=== PATIENT | male | born 1945 | race Caucasian/White ===

== ENCOUNTER 2022-12-13 06:17 | Day surgery (SDC) | payer OTHER ==
[2022-12-10 10:50] LABS: EOSINOPHILS % (AUTO) 2.3 % (0.0-8.0); HEMATOCRIT 47.4 % (42-54); LYMPHOCYTES % (AUTO) 11.7 % (21.0-51.0); MEAN CORPUSCULAR HEMOGLOBIN 31.1 pg (27.0-33.0); MEAN CORPUSCULAR HGB CONC 33.3 g/dL (32.0-36.0); MEAN CORPUSCULAR VOLUME 93.3 fL (79-99); MONOCYTES % (AUTO) 10.9 % (3.0-13.0); NEUTROPHILS % (AUTO) 73.6 % (40.0-77.0); PLATELET COUNT (AUTO) 449 K/uL (130-400); RED BLOOD CELL COUNT(AUTO) 5.08 MIL/uL (4.50-6.20); WHITE BLOOD COUNT (AUTO) 7.9 K/uL (4.8-10.8)
[2022-12-10 11:04] LABS: APPEARANCE,URINE CLEAR (CLEAR); BILIRUBIN,URINE NEGATIVE (NEGATIVE); COLOR,URINE YELLOW (YELLOW); GLUCOSE, URINE (UA) NEGATIVE (NEGATIVE); KETONES,URINE NEGATIVE (NEGATIVE); LEUKOCYTE ESTERASE ,URINE NEGATIVE Leu/uL (NEGATIVE); NITRATE,URINE NEGATIVE (NEGATIVE); OCCULT BLOOD,URINE NEGATIVE (NEGATIVE); PH,URINE 6.5 (5.0-8.0); PROTEIN,URINE NEGATIVE (NEGATIVE); UROBILINOGEN,URINE 0.2 mg/dL (0.2-1.0)
[2022-12-10 11:17] VITALS: BP 181/79
[2022-12-10 11:28] LABS: CREATININE 0.7 mg/dL (0.5-1.5); POTASSIUM 4.3 mmol/L (3.5-5.1)
[2022-12-10 11:46] LABS: INR 0.99 (0.85-1.15); PROTHROMBIN TIME 10.8 SEC (9.6-11.6)
[2022-12-10 11:48] LABS: PARTIAL THROMBOPLASTIN TIME 29.1 SEC (26.3-35.5)
[2022-12-10 11:49] LABS: B-TYPE NATRIURETIC PEPTIDE 15 pg/mL (0-100)
[~2022-12-13] VITALS: Ht 177.8 cm; Wt 90.2 kg
[2022-12-13] VITALS (11 sets, daily range): BP systolic 109–154; BP diastolic 69–79
[~2022-12-13 06:17] MED LIST: CETI10TA57 PO; LISI20TA24 PO; METH2.5T6 PO; PYRI-12 PO; ROSU10TA28 PO
[2022-12-13] MEDS ORDERED: 0.9%NACL 1000ML 1,000 ML IV ONE (06:58)
[2022-12-13] MEDS ORDERED: LIDOCAINE HCL 400MG/20ML VIAL ONE (08:18)
[2022-12-13] MEDS ORDERED: SODIUM BICARB 50MEQ 50ML VIAL 50 ML ONE (08:18)
[2022-12-13] MEDS ORDERED: IOHEXOL-350 75 ML VIAL IV ONE (08:18)
[2022-12-13] MEDS ORDERED: NITROGLYCERIN 50MG VIAL ONE (08:19)
[2022-12-13] MEDS ORDERED: HEPARIN 10,000 UNIT/10ML (1,000 UNIT/ML) VIAL ONE (08:19)
[2022-12-13] MEDS ORDERED: MIDAZOLAM HCL 1 MG/ML 2ML VIAL ONE (08:37)
[2022-12-13] MEDS ORDERED: MEPERIDINE-PF 25 MG/ML SYG ONE (08:37)
[2022-12-13] MEDS ORDERED: ASPIRIN 81MG CHEW TAB ONE (08:47)
[2022-12-13] MEDS ORDERED: 0.9%NACL 1000ML 1,000 ML IV SCH (09:30)
== END 2022-12-13 14:05 | disposition home or self-care (01) ==
LOC: DAH 06:17
PROVIDERS: ATTEND Internal Medicine Cardiovascular Disease
DX: G45.8 Other transient cerebral ischemic attacks and related syndromes (principal); I77.1 Stricture of artery; I10 Essential (primary) hypertension; J43.9 Emphysema, unspecified; E78.5 Hyperlipidemia, unspecified; Z87.891 Personal history of nicotine dependence; Z98.890 Other specified postprocedural states; Z79.899 Other long term (current) drug therapy; Z79.01 Long term (current) use of anticoagulants
CPT/HCPCS: 80048; 83880; 85025; 85610; 85730; 81003; 36415; 71045; 93005; 75710; 36215; C1769; C1894; C1760; J3490 ×3; J7030; J2250; J2175; J1644; Q9967; A4215; A4222; A4221; A4663; A4216; A4223 ×3; 96360; 96361; 99156; 99157

== ENCOUNTER 2023-03-07 07:14 | Day surgery (SDC) | payer OTHER ==
[2023-03-03 10:59] LABS: BASOPHILS % (AUTO) 0.9 % (0.0-5.0); EOSINOPHILS % (AUTO) 2.8 % (0.0-8.0); HEMATOCRIT 45.9 % (42-54); LYMPHOCYTES % (AUTO) 10.4 % (21.0-51.0); MEAN CORPUSCULAR HEMOGLOBIN 31.7 pg (27.0-33.0); MEAN CORPUSCULAR HGB CONC 34.2 g/dL (32.0-36.0); MEAN CORPUSCULAR VOLUME 92.7 fL (79-99); MONOCYTES % (AUTO) 11.3 % (3.0-13.0); NEUTROPHILS % (AUTO) 74.1 % (40.0-77.0); PLATELET COUNT (AUTO) 463 K/uL (130-400); RED BLOOD CELL COUNT(AUTO) 4.95 MIL/uL (4.50-6.20); RED CELL DISTRIBUTION WIDTH 13.2 % (11.0-15.5); WHITE BLOOD COUNT (AUTO) 7.9 K/uL (4.8-10.8)
[2023-03-03 11:04] LABS: APPEARANCE,URINE CLEAR (CLEAR); BILIRUBIN,URINE NEGATIVE (NEGATIVE); COLOR,URINE LIGHT-YELLOW (YELLOW); GLUCOSE, URINE (UA) NEGATIVE (NEGATIVE); KETONES,URINE NEGATIVE (NEGATIVE); LEUKOCYTE ESTERASE ,URINE NEGATIVE Leu/uL (NEGATIVE); NITRATE,URINE NEGATIVE (NEGATIVE); OCCULT BLOOD,URINE NEGATIVE (NEGATIVE); PH,URINE 6.5 (5.0-8.0); PROTEIN,URINE NEGATIVE (NEGATIVE); UROBILINOGEN,URINE 0.2 mg/dL (0.2-1.0)
[2023-03-03 11:10] LABS: CREATININE 0.7 mg/dL (0.5-1.5); POTASSIUM 4.4 mmol/L (3.5-5.1)
[2023-03-03 11:11] LABS: INR 0.99 (0.85-1.15); PROTHROMBIN TIME 10.8 SEC (9.6-11.6)
[2023-03-03 11:12] LABS: PARTIAL THROMBOPLASTIN TIME 27.7 SEC (26.3-35.5)
[2023-03-03 11:27] LABS: B-TYPE NATRIURETIC PEPTIDE 23 pg/mL (0-100)
[2023-03-03 11:31] VITALS: BP 119/78
[~2023-03-07] VITALS: Ht 177.8 cm; Wt 89.2 kg
[2023-03-07] VITALS (21 sets, daily range): BP systolic 100–173; BP diastolic 54–82
[~2023-03-07 07:14] MED LIST changes: -PYRI-12 PO; -ROSU10TA28 PO; +ROSU20TA23 PO
[2023-03-07] MEDS ORDERED: 0.9%NACL 1000ML 1,000 ML IV ONE (07:40)
[2023-03-07] MEDS ORDERED: AEC81 PO (08:02)
[2023-03-07] MEDS ORDERED: SODIUM BICARB 50MEQ 50ML VIAL 50 ML ONE (10:26)
[2023-03-07] MEDS ORDERED: LIDOCAINE HCL 400MG/20ML VIAL ONE (10:26)
[2023-03-07] MEDS ORDERED: HEPARIN 10,000 UNIT/10ML (1,000 UNIT/ML) VIAL ONE (10:27)
[2023-03-07] MEDS ORDERED: NITROGLYCERIN 50MG VIAL ONE (10:27)
[2023-03-07] MEDS ORDERED: MIDAZOLAM HCL 1 MG/ML 2ML VIAL ONE ×2 (10:27→10:59)
[2023-03-07] MEDS ORDERED: IODIXANOL 320 MG/ML 100 ML VIAL ONE ×2 (10:27→11:47)
[2023-03-07] MEDS ORDERED: MEPERIDINE-PF 25 MG/ML SYG ONE ×2 (10:27→11:00)
[2023-03-07] MEDS ORDERED: CLOPIDOGREL 300MG TAB ONE (12:08)
[2023-03-07] MEDS ORDERED: HYDRALAZINE 20MG/ML VIAL ONE (12:18)
[2023-03-07] MEDS ORDERED: 0.9%NACL 1000ML 1,000 ML IV SCH (12:30)
== END 2023-03-07 19:32 | disposition home or self-care (01) ==
LOC: DAH 07:14
PROVIDERS: ATTEND Internal Medicine Cardiovascular Disease
DX: G45.8 Other transient cerebral ischemic attacks and related syndromes (principal); I73.9 Peripheral vascular disease, unspecified; I77.1 Stricture of artery; I10 Essential (primary) hypertension; J43.9 Emphysema, unspecified; I25.2 Old myocardial infarction; E78.5 Hyperlipidemia, unspecified; Z79.01 Long term (current) use of anticoagulants; Z79.899 Other long term (current) drug therapy; Z98.890 Other specified postprocedural states; Z95.5 Presence of coronary angioplasty implant and graft
CPT/HCPCS: 80048; 83880; 85025; 85610; 85730 ×3; 81003; 36415 ×2; 93005; 37236; 36140; 85347 ×2; 75710; C1769 ×2; C1887 ×3; C1894 ×2; C1893; C1876 ×2; C1725; J3490 ×3; J7030; J0360; J1644 ×2; J2250 ×2; J2175 ×2; Q9967 ×2; A4215; A6402; A4657; A4222; A4221; A4663; A4216; A4606; A4223 ×3; 96360; 96361; 99156; 99157